=== PATIENT | female | born 1955 | race Caucasian/White ===

== ENCOUNTER 2022-03-20 00:45 | Emergency (ER) | payer MEDICARE, SELFPAY ==
--- NOTE | ~2022-03-20 | CT_ITS ---
EXAMINATION: CT cervical spine wo con DATE: 03/20/2022 04:09 INDICATION: Neck pain post fall with head injury TECHNIQUE: Computed tomography (CT) of the cervical spine was performed without intravenous contrast. Automated exposure control and iterative reconstruction technique were employed. The dose-length pro duct was 310.65 mGy-cm. COMPARISON: None FINDINGS: Slight reversal of the normal cervical lordosis. No spondylolisthesis or facet subluxation. Vertebral body heights are normal. No fracture. Moderate disc height loss at C4-C5 through T1-T2 with mild dis c height loss at C2-C3, C3-C4 and T2-T3. Posterior disc osteophyte complexes and moderate to severe u ncovertebral osteoarthritis at C4-C5 through C6-C7 result in mild central canal stenosis and minimal to mild bilateral neural foraminal stenosis at these levels. There is also mild to moderate multileve l cervical facet osteoarthritis. There is asymmetric lymphadenopathy at the right posterior cervical triangle, the largest lymph node measuring 11 mm in maximal short axis diameter. Cervical soft tissue s are otherwise unremarkable. Moderate emphysema at the apices of lungs. IMPRESSION: 1. Moderate cervical spondylosis. No acute osseous abnormality. 2. Nonspecific mild lymphadenopathy at the right posterior cervical triangle most likely reactive alt jose c differential would include less likely lymphoma or metastatic disease. Could consider ultrasoun d-guided core needle biopsy. Reviewed, dictated and finalized at location A. IMPRESSION: 1. Moderate cervical spondylosis. No acute osseous abnormality. 2. Nonspecific mild lymphadenopathy at the right posterior cervical triangle mo st likely reactive although differential would include less likely lymphoma or metastatic disease. Could consider ultrasound-guided core needle biopsy.
--- NOTE | ~2022-03-20 | CT_ITS ---
EXAMINATION: CT brain wo con DATE: 03/20/2022 04:09 INDICATION: Fall with head injury and dizziness TECHNIQUE: Computed tomography (CT) of the head was performed without intravenous contrast. Sagittal and coronal reconstructions were performed. The mA was adjusted according to patient size. Iterative reconstruction technique was employed. The dose-length product was 605.33 mGy-cm. COMPARISON: None FINDINGS: No fracture. No acute intracranial hemorrhage, acute infarction or abnormal extra axial fluid collect ion. Symmetric prominence of the sulci consistent with mild age-appropriate diffuse cerebral volume l oss. Ventricles are normal and symmetric. No mass/mass effect. Small right mastoid effusion. The orbi ts and paranasal sinuses are normal. IMPRESSION: 1. Mild age-appropriate diffuse volume loss. No fracture or acute intracranial process. 2. Small right mastoid effusion. Reviewed, dictated and finalized at location A.
[2022-03-20 00:47] VITALS: BP 135/76; PULSE 72; RESP 18; TEMP 36.8; O2SAT 99
[2022-03-20 04:24] VITALS: BP 103/63; PULSE 65; RESP 16; O2SAT 96
--- NOTE | 2022-03-24 11:02 | ED.FALL ---
HPI - Fall General Chief Complaint: Fall Stated Complaint: dizzy History of Present Illness HPI Narrative: Patient is a 66 year old female with a history of recurrent dizziness here for evaluation of a fall earlier this evening. Patient states she was feeling dizzy this evening which led her to fall and strike her head against the wall on the way down. She denies loss of consciousness, and she was able to get herself off of the ground after falling. She has been ambulatory since the incident. Denies headaches, visual changes, pain in joints, confusion, lacerations or abrasions. Patient was admitted to [facility] for several weeks for evaluation of her dizziness. She has had numerous MRIs and images of her brain without clear etiology of her dizziness. She states tonight was her usual dizzy episode and denies any associated symptoms. She is currently asympomatic and is no longer dizzy. Review of Systems Review of Systems: CONSTITUTIONAL: Denies fever, chills, or sweats. EYES: Denies visual changes, redness, or discharge. ENT: Denies rhinorrhea, congestion, sore throat, or otalgia. CARDIOVASCULAR: Denies chest pain, palpitations, or edema. RESPIRATORY: Denies cough or dyspnea. GASTROINTESTINAL: Denies abdominal pain, nausea, vomiting, or diarrhea. GENITOURINARY: Denies dysuria or hematuria. SKIN: Denies rash or itching. MUSCULOSKELETAL: Denies back pain, joint pain, or myalgia. NEUROLOGIC: Denies headache, numbness, or weakness. PSYCHIATRIC: Denies anxiety or depression. Exam Narrative: APPEARANCE: Well appearing, no pain in distress, well-nourished. Head: Normocephalic and atraumatic. EYES: PERRLA/EOMI, conjunctivae clear NOSE: No nasal drainage EARS: External ear normal in appearance THROAT: Oropharynx is clear. Mucous membranes are moist. NECK: Supple. No adenopathy, no masses. RESPIRATORY: Airway patent, respirations nonlabored. Clear to auscultation bilaterally, no rales, rhonchi, wheezing. CARDIOVASCULAR: Regular rate and rhythm without murmurs, rubs, or gallops. ABDOMINAL: Normoactive bowel sounds. Soft, nontender, nondistended. No rebound tenderness or guarding. MUSCULOSKELETAL: Extremities are warm and well-perfused. Moves all extremities well. No edema. NEURO: Cranial nerves II-XII intact. Normal speech. No focal neurologic deficits. SKIN: Skin is warm and dry. No rashes. PSYCHIATRIC: Normal affect/mood. Course Vital Signs Vital signs: Vital Signs Temperature 36.8 C 03/20/22 00:47 Pulse Rate 72 03/20/22 00:47 Respiratory Rate 18 03/20/22 00:47 Blood Pressure 135/76 03/20/22 00:47 Pulse Oximetry 99 03/20/22 00:47 Oxygen Delivery Room Air 03/20/22 00:47 Temperature 36.8 C 03/20/22 00:47 Pulse Rate 65 03/20/22 04:24 Respiratory Rate 16 03/20/22 04:24 Blood Pressure 103/63 03/20/22 04:24 Pulse Oximetry 96 03/20/22 04:24 Oxygen Delivery Room Air 03/20/22 00:47 MDM - Fall MDM Narrative Medical decision making narrative: 66 year old female here for evaluation of a fall with head injury earlier today. Vital signs normal, she is currently asymptomatic without evidence of significant head trauma. Stat radiology CT brain and C spine without acute findings; patient was discharged home at time of normal CT scan to follow up with her primary care provider and providers at [facility] who currently manage her dizziness. Discussed return precautions with patient and she voiced understanding. Of note, official read of C spine the following day did note a lymph node in patient's posterior chain that is possibly reactive, but may need biopsy to rule out malignancy. Attempted to call patient x3, but phone number in chart has full voicemail box. Discharge Plan Discharge Patient Disposition: Home, Self-Care Condition: Stable Instructions: Antibiotic Form Follow-up/Referrals: PHYSICIAN NOT ON STAFF,NONSTAFF [Primary Care Provider] -
== END 2022-03-20 04:08 | disposition home or self-care (01) ==
LOC: ANHED 00:58
DX: S09.90XA Unspecified injury of head, initial encounter (principal); W22.09XA Striking against other stationary object, initial encounter
CPT/HCPCS: 70450; 72125; 99284

== ENCOUNTER 2023-06-17 19:38 | Inpatient (IN) | payer MEDICARE, SELFPAY ==
[2023-06-17] VITALS (8 sets, daily range): BP systolic 81–131; BP diastolic 57–71; PULSE 88–97; RESP 18–23; TEMP 37.2; O2SAT 91–95
--- NOTE | ~2023-06-17 | XR_ITS ---
EXAMINATION: XR chest 2V DATE: 06/21/2023 10:24 INDICATION: Right lower lobe pneumonia TECHNIQUE: PA and lateral views of the chest are obtained. COMPARISON: 06/18/2023 FINDINGS: There are persistent airspace opacities of the right lower lobe without significant change. No pleural effusion or pneumothorax. The cardiomediastinal silhouette is normal. There is moderate t horacic spondylosis. IMPRESSION: 1. Right lower lobe pneumonia without significant change. Reviewed, dictated and finalized at location B.
--- NOTE | ~2023-06-17 | CT_ITS ---
Clinical Indication: Pulmonary embolus CT Scan of the Chest with Contrast: Technique: Contiguous sections were acquired throughout the chest after intravenous administration of 100 cc of Omnipaque 350. Dose reduction technique was used on this scan by utilizing automated expos ure control and iterative reconstruction technique. The dose-length product (DLP) was 267.65 mGy-cm. Findings: There is right hilar and subcarinal lymphadenopathy. There is no filling defect in the pulmonary tristian rial tree to suggest pulmonary embolus. There is no evidence of aortic dissection or aneurysm. There is no evidence of pleural or pericardial effusion. There is extensive right lower lobe consolidation, consistent with pneumonia. There is moderate to ad vanced emphysema, especially the upper lobes. Images through the upper abdomen reveal no abnormalities. Impression: Extensive right lower lobe pneumonia. Right hilar and subcarinal lymphadenopathy, presumably reactive. Moderate to advanced emphysema, especially in the upper lobes. Reviewed, dictated and finalized at [facility]. Impression: Extensive right lower lobe pneumonia. Right hilar and subcarinal lymphadenopathy, presumably reactive. Moderate to advanced emphysema, especially in the upper lobes.
--- NOTE | 2023-06-17 23:21 | ECG_ITS ---
Measurements Intervals Leonard Rate: 89 P: 5 [place]: 108 QRS: 62 QRSD: 92 T: 34 QT: 358 QTc: 436 Interpretive Statements SINUS RHYTHM WITH SHORT [place] INTERVAL NONSPECIFIC ST & T-WAVE ABNORMALITY- ANTEROLAT/INF LEADS BORDERLINE ECG NO PREVIOUS ECG AVAILABLE FOR COMPARISON Electronically Signed On 06-18-2023 6:31:34 CDT by Aditya Monahan D.O.
[2023-06-18] VITALS (32 sets, daily range): BP systolic 74–128; BP diastolic 49–84; PULSE 74–94; RESP 16–29; TEMP 36.9–37.2; O2SAT 90–99; BMI 24.9
--- NOTE | 2023-06-18 00:15 | ED.GENADULT ---
HPI - General Adult General Chief complaint: Syncope Stated complaint: syncopal episode Time Seen by Provider: 06/17/23 23:45 History of Present Illness HPI narrative: Patient is a 68-year-old female who presents the emergency department with chief complaint of syncope. Patient reports that she had COVID a couple weeks ago reports that she had a pain in the right side of her chest patient reports that she feels fine now but did feel lightheaded with standing Related Data Allergies Allergy/AdvReac Type Severity Reaction Status Date / Time No Known Allergies Allergy Verified 06/18/23 04:06 Review of Systems Review of Systems: A 10 system review of systems was completed on the patient and is negative except for what is stated in the HPI. Nursing and ancillary documentation was reviewed. Exam Narrative: GENERAL: Well-appearing, well-nourished, and in no acute distress. HEAD: Normocephalic, atraumatic. EYES: PERRLA and EOMI. ENT: Nares clear, no rhinorrhea or epistaxis. Mucous membranes moist. NECK: Supple. CHEST: Clear to auscultation. No respiratory distress. HEART: Regular rate and rhythm. No murmur heard. Normal peripheral pulses. ABDOMEN: Soft, nontender, nondistended, normal active bowel sounds. EXTREMITIES: Normal range of motion. No edema. SKIN: Warm, dry, no rash. NEURO: No focal deficits. Alert and oriented x3. PSYCH: Normal mood and affect. Course Vital Signs Vital signs: Vital Signs Temperature 37.2 C 06/17/23 20:56 Pulse Rate 93 06/17/23 20:56 Respiratory Rate 18 06/17/23 20:56 Blood Pressure 108/68 06/17/23 20:56 Pulse Oximetry 92 06/17/23 20:56 Oxygen Delivery Room Air 06/17/23 20:56 Temperature 37.2 C 06/17/23 20:56 Pulse Rate 74 06/18/23 03:46 Respiratory Rate 25 H 06/18/23 03:46 Blood Pressure 74/59 L 06/18/23 03:46 Pulse Oximetry 94 06/18/23 03:46 Oxygen Delivery Nasal Cannula 06/18/23 00:15 Oxygen Flow Rate 2 06/18/23 00:15 Medical Decision Making MDM Narrative Medical decision making narrative: Differential diagnosis includes pneumonia, CHF, pulmonary embolism, electrolyte abnormality CTA chest showed no evidence of PE but did show evidence of a right lower lobe pneumonia White blood cell count was elevated 25,000 Patient was started on Rocephin and Zithromax given the patient is requiring supplemental oxygen the patient will be admitted to the hospital. Vital Signs Vital Signs: Vital Signs Temperature 37.2 C 06/17/23 20:56 Pulse Rate 93 06/17/23 20:56 Respiratory Rate 18 06/17/23 20:56 Blood Pressure 108/68 06/17/23 20:56 Pulse Oximetry 92 06/17/23 20:56 Oxygen Delivery Room Air 06/17/23 20:56 Temperature 37.2 C 06/17/23 20:56 Pulse Rate 74 06/18/23 03:46 Respiratory Rate 25 H 06/18/23 03:46 Blood Pressure 74/59 L 06/18/23 03:46 Pulse Oximetry 94 06/18/23 03:46 Oxygen Delivery Nasal Cannula 06/18/23 00:15 Oxygen Flow Rate 2 06/18/23 00:15 Lab Data 06/18/23 00:11 06/18/23 00:11 Labs: Lab Results 06/18/23 06/18/23 06/18/23 Range/Units 00:11 00:11 00:11 WBC 25.6 H (4.5-10.0) K/mm3 RBC 5.31 (4.2-5.4) M/mm3 Hgb 13.4 (12.0-15.0) g/dL Hct 41.4 (37.0-47.0) % MCV 78.0 L (80-100) fl MCH 25.2 L (26-34) pg MCHC 32.4 (32-36) g/dl RDW 13.8 (11.5-14.5) % Plt Count 224 (150-375) k/mm3 MPV 10.4 (7.4-10.4) fl Immature Gran % (Auto) 1.2 H (0-0.5) % Neut % (Auto) 83.2 H (45.5-73.1) % Lymph % (Auto) 8.7 L (18.3-44.2) % [place] % (Auto) 6.6 (2.6-8.5) % Eos % (Auto) 0.0 (0-4.4) % Baso % (Auto) 0.3 (0.2-1.2) % Lymph # (Auto) 2.22 (0.9-3.2) K/mm3 [place] # (Auto) 1.7 H (0.1-0.6) K/mm3 Eos # (Auto) 0.0 (0-0.3) K/mm3 Baso # (Auto) 0.1 (0.0-0.1) K/mm3 Abs Immat Gran (auto) 0.31 H (0.00-0.031) K/mm3 Absolute Neuts (auto) 21.3 H (1.3-6.7) K/mm3 Abs
[2023-06-18 00:18] LABS: Basophils Absolute Auto 0.1 K/mm3 (0.0-0.1); Basophils Percent Auto 0.3 % (0.2-1.2); Hematocrit 41.4 % (37.0-47.0); Hemoglobin 13.4 g/dL (12.0-15.0); Immature Granulocyte Absolute 0.31 K/mm3 (0.00-0.031); Immature Granulocyte Percent A 1.2 % (0-0.5); Lymphocytes Absolute Auto 2.22 K/mm3 (0.9-3.2); Lymphocytes Percent Auto 8.7 % (18.3-44.2); Mean Corpuscular HGB Conc 32.4 g/dl (32-36); Mean Corpuscular Hemoglobin 25.2 pg (26-34); Mean Platelet Volume 10.4 fl (7.4-10.4); Monocytes Absolute Auto 1.7 K/mm3 (0.1-0.6); Monocytes Percent Auto 6.6 % (2.6-8.5); Neutrophils Absolute Auto 21.3 K/mm3 (1.3-6.7); Neutrophils Percent Auto 83.2 % (45.5-73.1); Platelet Count Result 224 k/mm3 (150-375); Red Blood Count 5.31 M/mm3 (4.2-5.4); Red Cell Distribution Width 13.8 % (11.5-14.5); White Blood Count 25.6 K/mm3 (4.5-10.0)
[2023-06-18 00:29] LABS: Lactic Acid Reflex 1.5 mmol/L (0.7-2.0)
[2023-06-18 00:32] LABS: INR 1.2; Prothrombin Time 16.1 Seconds (11.1-14.7)
[2023-06-18 00:33] LABS: Partial Thromboplastin Time 35.3 SECONDS (22.3-36.8)
[2023-06-18 00:35] LABS: Alanine Aminotransferase 19 U/L (6-35); Alkaline Phosphatase 118 U/L (38-126); Aspartate Amino Transferase 24 U/L (14-36); Bilirubin,Total 1.5 mg/dL (0.2-1.3); Blood Urea Nitrogen 14 mg/dL (7-17); Calcium 8.6 mg/dL (8.4-10.2); Carbon Dioxide 20 mmol/L (22-30); Estimated CRCL calculation 66 ml/min; Estimated Glomerular Filt Rate > 60; Glucose 105 mg/dL (65-110)
[2023-06-18 00:45] LABS: Anion Gap 12 mmol/L (8-16); Chloride 99 mmol/L (98-107); Magnesium 1.7 mg/dL (1.6-2.3); Potassium 4.2 mmol/L (3.4-5.0); Sodium 131 mmol/L (137-145)
[2023-06-18 02:58] LABS: Influenza A QL RT-PCR Negative (Negative); Influenza B QL RT-PCR Negative (Negative); SARS-CoV-2 RNA PCR Negative (Negative)
[2023-06-18 02:59] LABS: NT Pro B Type Natriuretic Pept 1300 pg/mL (19.9-100); Troponin I < 0.012 ng/mL (0.000-0.034)
[2023-06-18 03:51] LABS: Appearance Urine Clear (Clear); Bacteria Urine None Seen /hpf; Bilirubin Urine Negative (Negative); Blood Urine Negative (Negative); Color Urine Yellow (Yellow); Glucose Urine UA Negative (Negative); Ketones Urine Negative (Negative); Leukocyte Esterase Ur Negative LEU/UL (Negative); Nitrate Urine Negative (Negative); Non Pathogenic Casts 0-2; Protein Urine Negative (Negative); Specific Grav Ur 1.031 (1.001-1.035); Squamous Epithelial Cell Urine Occasional /hpf (Few); WBC Urine 0-5 /hpf
[2023-06-18 03:52] LABS: Add Urine Microscopic? YES
[2023-06-18] MEDS: SODIUM CHLORIDE 0.9% IV 1,000 ML 999 ML IV CONT (04:08)
[2023-06-18] MEDS: AZITHROMYCIN 500 MG/NS 250 ML 500 MG/250 ML BAG 250 MG IVPB (04:19)
[2023-06-18 04:43] LABS: Troponin I < 0.012 ng/mL (0.000-0.034)
[2023-06-18] MEDS: MORPHINE SULFATE (*CRX) 2 MG/ML INJ IV PUSH (05:06)
[2023-06-18] MEDS: ALBUTEROL SULFATE NEB 2.5 MG/3 ML INH INHALATION ×3 (09:27→19:58)
[2023-06-18] MEDS: IPRATROPIUM BR 0.02% INH SOLN 0.5 MG/2.5 ML VIAL INHALATION ×3 (09:27→19:58)
--- NOTE | 2023-06-18 11:34 | PM.IMHP ---
H&P: HPI History of Present Illness Date/Time: 06/18/23 11:34 Chief Complaint: Syncope, right-sided chest pain Narrative: This is a 68-year-old female patient who is admitted to the hospital due to right lower lobe pneumonia with hypoxia in the setting of near syncope and right-sided chest pain. Patient reports recovering from COVID a couple of weeks ago. Patient reports that she was unable to ambulate due to generalized weakness and that she had dyspnea on exertion. Patient reports that she passed out and vomited x1. Patient reports past medical history of anxiety hypertension and prior admission x2 for pneumonia last time was about 15 years ago at [facility]. At that time patient reports that they believed she may have lung cancer due to the severity of pneumonia but when it was biopsied it was infectious inflammation only. Patient denies any recent healthcare exposure last time she was in hospital was well over a year ago at [facility] for neurosarcoidosis. In the emergency department white blood cell count was noted to be 25.6 and patient was requiring oxygen which she usually does not wear. Additional significant findings include hypotension at one point (74/59) that responded to IV fluids and hyponatremia with a sodium of 131. CTA of the chest was negative for PE but did show complex extensive right lower lobe pneumonia. Patient was given IV Rocephin and Zithromax in the emergency department prior to admission. COVID flu swab were negative. Lactic acid was normal. Review of Systems Review of Systems: All systems reviewed & are unremarkable except as noted in HPI and below PMFSH Past Medical History Medical History Anxiety HTN (hypertension) Neurosarcoidosis Social History Social History Smoking packs per day: 0.5 Smoking cigarettes per day: 10.0 Smoking status: Current every day smoker Tobacco type: cigarettes Alcohol intake: never Substance use: never Lack of Transportation: No Lack of Food: Never True Current Housing: I Do Not Have Housing Concerned About Future Housing: No Difficulty Paying Gas/Electric Bills: No Difficulty Paying for Meds: No Currently Unemployed: No Education: High School Diploma/GED Difficulty w/ Childcare or Family Care: No Spiritual care concerns: No Meds Home Medications and Allergies Home Medications Medication Instructions Recorded Confirmed Type alprazolam 0.5 mg tablet 0.5 mg PO HS 06/18/23 06/18/23 History amlodipine 5 mg tablet 5 mg PO DAILY 06/18/23 06/18/23 History bupropion HCl 150 mg tablet,12 hr 150 mg PO BID 06/18/23 06/18/23 History sustained-release hydrochlorothiazide 12.5 mg tablet 12.5 mg PO DAILY 06/18/23 06/18/23 History lisinopril 40 mg tablet 40 mg PO QHS 06/18/23 06/18/23 History metoprolol succinate 100 mg 100 mg PO DAILY 06/18/23 06/18/23 History tablet,extended release 24 hr venlafaxine 150 mg 150 mg PO DAILY 06/18/23 06/18/23 History capsule,extended release 24 hr Allergies Allergy/AdvReac Type Severity Reaction Status Date / Time No Known Allergies Allergy Verified 06/18/23 04:06 Vital Signs Vital Signs - 24 hr 06/17/23 20:56 06/17/23 21:01 06/17/23 23:10 Temperature 37.2 C Pulse Rate 93 91 Respiratory Rate 18 Blood Pressure 108/68 102/57 L Pulse Oximetry 92 93 91 Oxygen Delivery Room Air Nasal Cannula Oxygen Flow Rate 2 06/17/23 23:21 06/17/23 23:35 06/17/23 23:35 Temperature Pulse Rate 89 90 88 Respiratory Rate 21 H Blood Pressure 122/70 131/71 Pulse Oximetry 95 Oxygen Delivery Nasal Cannula Oxygen Flow Rate 2 06/17/23 23:35 06/17/23 23:37 06/17/23 23:22 Temperature Pulse Rate 92 97 88 Respiratory Rate 23 H Blood Pressure 102/70 81/68 L 122/70 Pulse Oximetry 94 Oxygen Delivery Oxygen Flow Rate 06/17/23 23:32
--- NOTE | 2023-06-18 12:00 | ADMGEN ---
This patient, Pauly Tai, was admitted to [facility] Surg Room 306-01. Patient/family oriented to hospital policies and general routines including ID bracelet, bed and alarms, visiting hours, pain management, procedures, bathroom and other care routines, personal items, smoking policy, room service/diet, and visiting hours. Information on how to activate the Rapid Response Team has been discussed. Patient/Family are encouraged to report perceived risks to care and to ask questions if they do not understand what they are told or what they should do.
[2023-06-18] MEDS: CEFEPIME 2 GM/NS 50 ML 2 GM/50 ML BAG IVPB ×2 (13:13→21:15)
[2023-06-18 14:15] LABS: Estimated CRCL calculation 57 ml/min; Estimated Glomerular Filt Rate > 60
[2023-06-18] MEDS: ALPRAZolam (*CRX) 0.5 MG TABLET PO (20:47)
[2023-06-18] MEDS: buPROPion HCL SR (12 HR) 150 MG TAB PO (20:47)
[2023-06-18] MEDS: ENOXAPARIN 40 MG/0.4 ML SYRINGE SUB-Q (20:47)
[2023-06-18] MEDS: AZITHROMYCIN 250 MG TABLET 500 MG PO (20:47)
[2023-06-19] VITALS (15 sets, daily range): BP systolic 106–126; BP diastolic 60–73; PULSE 72–98; RESP 16–20; TEMP 35.5–36.1; O2SAT 91–96
[2023-06-19] MEDS: ALBUTEROL SULFATE NEB 2.5 MG/3 ML INH INHALATION ×4 (02:22→19:41)
[2023-06-19] MEDS: IPRATROPIUM BR 0.02% INH SOLN 0.5 MG/2.5 ML VIAL INHALATION ×4 (02:22→19:42)
[2023-06-19] MEDS: CEFEPIME 2 GM/NS 50 ML 2 GM/50 ML BAG IVPB ×3 (05:33→21:26)
[2023-06-19 07:10] LABS: Basophils Percent Auto 0.2 % (0.2-1.2); Eosinophils Absolute Auto 0.2 K/mm3 (0-0.3); Eosinophils Percent Auto 1.7 % (0-4.4); Hematocrit 38.4 % (37.0-47.0); Hemoglobin 11.8 g/dL (12.0-15.0); Immature Granulocyte Absolute 0.06 K/mm3 (0.00-0.031); Immature Granulocyte Percent A 0.5 % (0-0.5); Lymphocytes Absolute Auto 1.78 K/mm3 (0.9-3.2); Lymphocytes Percent Auto 14.6 % (18.3-44.2); Mean Corpuscular HGB Conc 30.7 g/dl (32-36); Mean Corpuscular Hemoglobin 24.7 pg (26-34); Mean Corpuscular Volume 80.5 fl (80-100); Mean Platelet Volume 10.9 fl (7.4-10.4); Monocytes Percent Auto 8.1 % (2.6-8.5); Neutrophils Absolute Auto 9.1 K/mm3 (1.3-6.7); Neutrophils Percent Auto 74.9 % (45.5-73.1); Platelet Count Result 194 k/mm3 (150-375); Red Blood Count 4.77 M/mm3 (4.2-5.4); Red Cell Distribution Width 14.1 % (11.5-14.5); White Blood Count 12.2 K/mm3 (4.5-10.0)
[2023-06-19 07:30] LABS: Alanine Aminotransferase 13 U/L (6-35); Albumin Level 3.3 g/dL (3.5-5.1); Alkaline Phosphatase 134 U/L (38-126); Anion Gap 9 mmol/L (8-16); Aspartate Amino Transferase 18 U/L (14-36); Bilirubin,Total 0.7 mg/dL (0.2-1.3); Blood Urea Nitrogen 13 mg/dL (7-17); Calcium 8.6 mg/dL (8.4-10.2); Carbon Dioxide 24 mmol/L (22-30); Chloride 103 mmol/L (98-107); Estimated CRCL calculation 57 ml/min; Estimated Glomerular Filt Rate > 60; Glucose 107 mg/dL (65-110); Potassium 3.4 mmol/L (3.4-5.0); Sodium 136 mmol/L (137-145)
[2023-06-19] MEDS: VENLAFAXINE HCL XR 75 MG CAP.ER.24H 150 MG PO (08:04)
[2023-06-19] MEDS: buPROPion HCL SR (12 HR) 150 MG TAB PO ×2 (08:04→21:26)
[2023-06-19] MEDS: VANCOMYCIN 1,250 MG/NS 250 ML 1,250 MG/250 ML BAG 166.67 MG IVPB (08:05)
--- NOTE | 2023-06-19 09:01 | PM.IMPN ---
Progress Note: A&P Assessment and Plan (1) Sepsis: Code(s): A41.9 - Sepsis, unspecified organism Status: Acute Assessment and Plan: improving, vital signs stable, white count improving (2) Hyponatremia: Code(s): E87.1 - Hypo-osmolality and hyponatremia Status: Acute Assessment and Plan: improving sodium currently 136 (3) Pneumonia: Code(s): J18.9 - Pneumonia, unspecified organism Status: Acute Assessment and Plan: patient is on vancomycin cefepime improving white blood cell count improving vital signs able to start weaning oxygen. (4) Anxiety: Code(s): F41.9 - Anxiety disorder, unspecified Status: Acute Assessment and Plan: Stable continue home medications (5) HTN (hypertension): Code(s): I10 - Essential (primary) hypertension Status: Acute Assessment and Plan: stable. Blood pressure reviewed 06/19 (6) Hypoxia: Code(s): R09.02 - Hypoxemia Status: Acute Assessment and Plan: in the process of weaning oxygen currently requiring 1 liter/minute. Added incentive spirometer use today Time Spent With Patient Time with patient: 25 - 35 minutes Subjective Date/time seen: 06/19/23 09:01 Interval history: Patient reports that she still has some occasional moments of difficulty breathing. She reports that she is coughing but not bringing up much mucus. The cough is constant. Patient denies any chest pain nausea vomiting or voiding problems. Review of Systems Review of Systems: All systems reviewed & are unremarkable except as noted in HPI and below Exam Narrative: GENERAL: Mildly ill-appearing with occasional cough, alert and oriented, in no apparent distress. She is pleasant and conversant in full sentences. Supplemental oxygen in place HEENT: Pupils are equally round and briskly reactive to light. Extraocular muscles are intact. Oral mucous membranes are moist without lesions. NECK: The patient has no noted JVD. No adenopathy is appreciated. CHEST/LUNGS: Lungs are clear on the left and anterior right but nearly absent posterior right. Mild tenderness to the right lower anterior rib cage. No tachypnea or respiratory distress HEART: The patient has a regular rate and rhythm. No murmurs, rubs, or gallops are appreciated. Distal pulses are 2+. No carotid bruits appreciated. ABDOMEN: The patient?s abdomen is soft, nontender, and nondistended. Bowel sounds are positive. No organomegaly is appreciated. No masses are appreciated. There are no peritoneal signs. There is no Blank?s sign. EXTREMITIES: The patient has no peripheral edema. There is no focal long bone tenderness or deformity. SKIN: The patient?s skin is warm and dry, without rashes or lesions. PSYCHIATRIC: The patient has normal mental status and has an appropriate affect. NEUROLOGIC: There are no gross deficits to the cranial nerves. Patient ambulates with steady gait. Objective Data Vital Signs Vital Signs: Vital Signs - 24 hr 06/18/23 09:31 06/18/23 09:22 06/18/23 09:30 Temperature Pulse Rate 84 87 85 Respiratory Rate 20 29 H 26 H Blood Pressure 116/59 L Pulse Oximetry 90 99 Oxygen Delivery Oxygen Flow Rate 06/18/23 09:38 06/18/23 09:46 06/18/23 10:00 Temperature Pulse Rate 84 86 88 Respiratory Rate 20 26 H 20 Blood Pressure 124/65 Pulse Oximetry 92 92 90 Oxygen Delivery Oxygen Flow Rate 06/18/23 11:35 06/18/23 14:17 06/18/23 14:18 Temperature 36.9 C Pulse Rate 90 77 77 Respiratory Rate 16 20 16 Blood Pressure 110/84 Pulse Oximetry 91 98 Oxygen Delivery Nasal Cannula Oxygen Flow Rate 2 06/18/23 14:00 06/18/23 12:00 06/18/23 17:03 Temperature 37.2 C Pulse Rate 84 85 Respiratory Rate 16 Blood Pressure 104/65 Pulse Oximetry 91 92 Oxygen Delivery Nasal Cannula Oxygen Flow Rate 2 06/18/23 16:00 06/18/23 19:59 06/18/23 20:10 Temperature Pulse Rate 80 74
[2023-06-19] MEDS: ENOXAPARIN 40 MG/0.4 ML SYRINGE SUB-Q (21:26)
[2023-06-19] MEDS: AZITHROMYCIN 250 MG TABLET 500 MG PO (21:26)
[2023-06-19] MEDS: ALPRAZolam (*CRX) 0.5 MG TABLET PO (21:26)
[2023-06-20] VITALS (13 sets, daily range): BP systolic 126–143; BP diastolic 70–89; PULSE 86–110; RESP 16–18; TEMP 35.9–36.6; O2SAT 91–96
[2023-06-20 01:52] LABS: Vancomycin Trough 10.2 ug/mL (10.0-20.0)
[2023-06-20] MEDS: VANCOMYCIN 1,250 MG/NS 250 ML 1,250 MG/250 ML BAG 166.67 MG IVPB (02:21)
[2023-06-20] MEDS: ALBUTEROL SULFATE NEB 2.5 MG/3 ML INH INHALATION ×4 (02:34→19:29)
[2023-06-20] MEDS: IPRATROPIUM BR 0.02% INH SOLN 0.5 MG/2.5 ML VIAL INHALATION ×4 (02:34→19:30)
[2023-06-20] MEDS: CEFEPIME 2 GM/NS 50 ML 2 GM/50 ML BAG IVPB ×3 (05:37→21:36)
[2023-06-20 06:35] LABS: Basophils Percent Auto 0.5 % (0.2-1.2); Eosinophils Absolute Auto 0.3 K/mm3 (0-0.3); Eosinophils Percent Auto 3.5 % (0-4.4); Hematocrit 36.3 % (37.0-47.0); Hemoglobin 11.3 g/dL (12.0-15.0); Immature Granulocyte Absolute 0.04 K/mm3 (0.00-0.031); Immature Granulocyte Percent A 0.5 % (0-0.5); Lymphocytes Absolute Auto 1.35 K/mm3 (0.9-3.2); Mean Corpuscular HGB Conc 31.1 g/dl (32-36); Mean Corpuscular Hemoglobin 24.5 pg (26-34); Mean Corpuscular Volume 78.6 fl (80-100); Mean Platelet Volume 10.2 fl (7.4-10.4); Monocytes Absolute Auto 0.7 K/mm3 (0.1-0.6); Monocytes Percent Auto 8.3 % (2.6-8.5); Neutrophils Absolute Auto 5.6 K/mm3 (1.3-6.7); Neutrophils Percent Auto 70.2 % (45.5-73.1); Platelet Count Result 203 k/mm3 (150-375); Red Blood Count 4.62 M/mm3 (4.2-5.4); Red Cell Distribution Width 13.9 % (11.5-14.5); White Blood Count 7.9 K/mm3 (4.5-10.0)
[2023-06-20 06:40] LABS: Alanine Aminotransferase 13 U/L (6-35); Albumin Level 3.2 g/dL (3.5-5.1); Alkaline Phosphatase 112 U/L (38-126); Anion Gap 6 mmol/L (8-16); Aspartate Amino Transferase 17 U/L (14-36); Bilirubin,Total 0.5 mg/dL (0.2-1.3); Blood Urea Nitrogen 9 mg/dL (7-17); Calcium 8.5 mg/dL (8.4-10.2); Carbon Dioxide 24 mmol/L (22-30); Chloride 107 mmol/L (98-107); Estimated CRCL calculation 66 ml/min; Estimated Glomerular Filt Rate > 60; Glucose 141 mg/dL (65-110); Sodium 137 mmol/L (137-145)
[2023-06-20] MEDS: buPROPion HCL SR (12 HR) 150 MG TAB PO ×2 (08:12→20:35)
[2023-06-20] MEDS: VENLAFAXINE HCL XR 75 MG CAP.ER.24H 150 MG PO (08:12)
--- NOTE | 2023-06-20 12:34 | PM.IMPN ---
Progress Note: A&P Assessment and Plan (1) Sepsis: Code(s): A41.9 - Sepsis, unspecified organism Status: Acute Assessment and Plan: improving, vital signs stable, white count improving (2) Hyponatremia: Code(s): E87.1 - Hypo-osmolality and hyponatremia Status: Acute Assessment and Plan: improving sodium currently 137 (3) Pneumonia: Code(s): J18.9 - Pneumonia, unspecified organism Status: Acute Assessment and Plan: MRSA screen of the nares was negative. Vancomycin discontinued. Patient continues on cefepime. occasional nonproductive cough noted. Add Mucinex DM to try to thin secretions continue incentive spirometer (4) Anxiety: Code(s): F41.9 - Anxiety disorder, unspecified Status: Acute Assessment and Plan: Stable continue home medications (5) HTN (hypertension): Code(s): I10 - Essential (primary) hypertension Status: Acute Assessment and Plan: stable. Blood pressure reviewed 06/20 (6) Hypoxia: Code(s): R09.02 - Hypoxemia Status: Acute Assessment and Plan: patient using incentive spirometer, oxygen removed on examination and patient tolerating Room air currently. Plan transition patient to room air will plan to discharge patient when she can remain room air and sputum culture results sputum culture indicative of lower respiratory tract secretions, awaiting final report Time Spent With Patient Time with patient: 25 - 35 minutes Subjective Date/time seen: 06/20/23 12:34 Interval history: patient reports that she is doing well still with occasional shortness of breath and nonproductive cough. No fever chills. No chest pain nausea vomiting bowel or bladder problems. Review of Systems Review of Systems: All systems reviewed & are unremarkable except as noted in HPI and below Exam Narrative: GENERAL: now well-appearing with occasional cough, alert and oriented, in no apparent distress. She is pleasant and conversant in full sentences. Supplemental oxygen discontinued by this provider HEENT: Pupils are equally round and briskly reactive to light. Extraocular muscles are intact. Oral mucous membranes are moist without lesions. NECK: The patient has no noted JVD. No adenopathy is appreciated. CHEST/LUNGS: Lungs are clear on the left and right lower lobe rhonchi present which is improved over near absent lung sounds previous. Mild tenderness to the right lower anterior rib cage. No tachypnea or respiratory distress HEART: The patient has a regular rate and rhythm. No murmurs, rubs, or gallops are appreciated. Distal pulses are 2+. No carotid bruits appreciated. ABDOMEN: The patient?s abdomen is soft, nontender, and nondistended. Bowel sounds are positive. No organomegaly is appreciated. No masses are appreciated. There are no peritoneal signs. There is no Blank?s sign. EXTREMITIES: The patient has no peripheral edema. There is no focal long bone tenderness or deformity. SKIN: The patient?s skin is warm and dry, without rashes or lesions. PSYCHIATRIC: The patient has normal mental status and has an appropriate affect. NEUROLOGIC: There are no gross deficits to the cranial nerves. Patient ambulates with steady gait. Objective Data Vital Signs Vital Signs: Vital Signs - 24 hr 06/19/23 14:18 06/19/23 14:32 06/19/23 14:00 Temperature 36.1 C L Pulse Rate 96 91 92 Respiratory Rate 20 18 16 Blood Pressure 106/60 Pulse Oximetry 94 Oxygen Delivery Oxygen Flow Rate 06/19/23 19:44 06/19/23 19:44 06/19/23 20:00 Temperature Pulse Rate 80 84 Respiratory Rate 18 18 Blood Pressure Pulse Oximetry 96 Oxygen Delivery Nasal Cannula Room Air Oxygen Flow Rate 2 06/19/23 22:00 06/20/23 02:35 06/19/23 20:05 Temperature 35.9 C L Pulse Rate 98 92 91 Respiratory Rate 16 18 18 Blood Pressure 126/73 Pulse Oximetry 93 Oxygen Delivery Oxygen Flow Rate
[2023-06-20] MEDS: polyethylene glycoL 3350 17 GM POWD.PACK PO (13:39)
[2023-06-20] MEDS: guaiFENesin 600 MG/DEXTROMETHORPHAN 30 MG SR TAB 12 HR 1 TAB PO ×2 (13:39→20:36)
[2023-06-20] MEDS: AZITHROMYCIN 250 MG TABLET 500 MG PO (20:34)
[2023-06-20] MEDS: ALPRAZolam (*CRX) 0.5 MG TABLET PO (20:34)
[2023-06-20] MEDS: ENOXAPARIN 40 MG/0.4 ML SYRINGE SUB-Q (20:35)
[2023-06-21] VITALS (16 sets, daily range): BP systolic 129–158; BP diastolic 63–83; PULSE 72–111; RESP 16–18; TEMP 36.2–38.2; O2SAT 77–94
[2023-06-21] MEDS: IPRATROPIUM BR 0.02% INH SOLN 0.5 MG/2.5 ML VIAL INHALATION ×3 (01:09→13:50)
[2023-06-21] MEDS: ALBUTEROL SULFATE NEB 2.5 MG/3 ML INH INHALATION ×3 (01:09→13:50)
[2023-06-21] MEDS: CEFEPIME 2 GM/NS 50 ML 2 GM/50 ML BAG IVPB ×3 (05:20→21:20)
[2023-06-21 07:08] LABS: Basophils Absolute Auto 0.1 K/mm3 (0.0-0.1); Basophils Percent Auto 0.6 % (0.2-1.2); Eosinophils Absolute Auto 0.3 K/mm3 (0-0.3); Eosinophils Percent Auto 4.3 % (0-4.4); Hematocrit 38.8 % (37.0-47.0); Hemoglobin 12.6 g/dL (12.0-15.0); Immature Granulocyte Absolute 0.04 K/mm3 (0.00-0.031); Immature Granulocyte Percent A 0.5 % (0-0.5); Lymphocytes Absolute Auto 1.42 K/mm3 (0.9-3.2); Lymphocytes Percent Auto 17.8 % (18.3-44.2); Mean Corpuscular HGB Conc 32.5 g/dl (32-36); Mean Corpuscular Volume 76.8 fl (80-100); Mean Platelet Volume 10.2 fl (7.4-10.4); Monocytes Absolute Auto 0.8 K/mm3 (0.1-0.6); Monocytes Percent Auto 10.1 % (2.6-8.5); Neutrophils Absolute Auto 5.3 K/mm3 (1.3-6.7); Neutrophils Percent Auto 66.7 % (45.5-73.1); Platelet Count Result 280 k/mm3 (150-375); Red Blood Count 5.05 M/mm3 (4.2-5.4); Red Cell Distribution Width 13.9 % (11.5-14.5)
[2023-06-21 07:18] LABS: Alanine Aminotransferase 15 U/L (6-35); Albumin Level 3.5 g/dL (3.5-5.1); Alkaline Phosphatase 135 U/L (38-126); Anion Gap 7 mmol/L (8-16); Aspartate Amino Transferase 20 U/L (14-36); Bilirubin,Total 0.5 mg/dL (0.2-1.3); Blood Urea Nitrogen 6 mg/dL (7-17); Calcium 8.9 mg/dL (8.4-10.2); Carbon Dioxide 27 mmol/L (22-30); Chloride 104 mmol/L (98-107); Estimated CRCL calculation 66 ml/min; Estimated Glomerular Filt Rate > 60; Glucose 125 mg/dL (65-110); Potassium 3.1 mmol/L (3.4-5.0); Sodium 138 mmol/L (137-145)
[2023-06-21] MEDS: VENLAFAXINE HCL XR 75 MG CAP.ER.24H 150 MG PO (08:43)
[2023-06-21] MEDS: buPROPion HCL SR (12 HR) 150 MG TAB PO ×2 (08:43→21:19)
[2023-06-21] MEDS: POTASSIUM CHLORIDE 20 MEQ ER TABLET 40 MEQ PO (08:43)
[2023-06-21] MEDS: polyethylene glycoL 3350 17 GM POWD.PACK PO (08:44)
[2023-06-21] MEDS: guaiFENesin 600 MG/DEXTROMETHORPHAN 30 MG SR TAB 12 HR 1 TAB PO ×2 (08:44→21:19)
--- NOTE | 2023-06-21 09:56 | PM.IMPN ---
Progress Note: A&P Assessment and Plan (1) Pneumonia: Code(s): J18.9 - Pneumonia, unspecified organism Status: Acute Assessment and Plan: MRSA screen of the nares was negative. Vancomycin discontinued. Patient continues on cefepime. occasional nonproductive cough noted. Add Mucinex DM to try to thin secretions continue incentive spirometer 06/21: oxygen had to be restarted for desaturation. Repeat chest x-ray still shows right lower lobe pneumonia essentially unchanged (2) Hyponatremia: Code(s): E87.1 - Hypo-osmolality and hyponatremia Status: Acute Assessment and Plan: improving sodium currently 138 (3) Anxiety: Code(s): F41.9 - Anxiety disorder, unspecified Status: Acute Assessment and Plan: Stable continue home medications (4) HTN (hypertension): Code(s): I10 - Essential (primary) hypertension Status: Acute Assessment and Plan: stable. Blood pressure reviewed 06/21, restarted antihypertensives that were initially held when patient was septic (5) Hypoxia: Code(s): R09.02 - Hypoxemia Status: Acute Assessment and Plan: patient using incentive spirometer, oxygen removed on examination and patient tolerating Room air currently. 06/21: re-application of oxygen at 1 liter/minute for asymptomatic hypoxia ranging 77 86% on room air (6) Sepsis: Code(s): A41.9 - Sepsis, unspecified organism Status: Acute Assessment and Plan: improving, vital signs stable, white count improving Plan patient failed room air at this time Restarting antihypertensives WBCs have normalized mildly low potassium otherwise CBC and metabolic panel are unremarkable attempt to mobilize patient more and re-attempt room air Yeast noted on sputum culture but feel like this pneumonia is bacterial rather than yeast as she has no significant risk factors for yeast pneumonia Time Spent With Patient Time with patient: Greater than 35 minutes Subjective Date/time seen: 06/21/23 09:56 Interval history: Patient reports that she is doing well still with occasional shortness of breath and mostly nonproductive cough. No fever chills. No chest pain nausea vomiting bowel or bladder problems. nursing staff had to reapply oxygen this morning due to desaturation as low as 77% with peak of 86% on room air. patient was asymptomatic while desaturated Review of Systems Review of Systems: All systems reviewed & are unremarkable except as noted in HPI and below Exam Narrative: GENERAL: now well-appearing with occasional cough, alert and oriented, in no apparent distress. She is pleasant and conversant in full sentences. Supplemental oxygen discontinued by this provider HEENT: Pupils are equally round and briskly reactive to light. Extraocular muscles are intact. Oral mucous membranes are moist without lesions. NECK: The patient has no noted JVD. No adenopathy is appreciated. CHEST/LUNGS: Lungs are clear on the left and right lower lobe rhonchi present which is improved over near absent lung sounds previous. Mild tenderness to the right lower anterior rib cage. No tachypnea or respiratory distress HEART: The patient has a regular rate and rhythm. No murmurs, rubs, or gallops are appreciated. Distal pulses are 2+. No carotid bruits appreciated. ABDOMEN: The patient?s abdomen is soft, nontender, and nondistended. Bowel sounds are positive. No organomegaly is appreciated. No masses are appreciated. There are no peritoneal signs. There is no Blank?s sign. EXTREMITIES: The patient has no peripheral edema. There is no focal long bone tenderness or deformity. SKIN: The patient?s skin is warm and dry, without rashes or lesions. PSYCHIATRIC: The patient has normal mental status and has an appropriate affect. NEUROLOGIC: There are no gross deficits to the cranial nerves. Patient ambulates with steady gait. Objective Data Vital Signs Vital Signs: Vital
[2023-06-21] MEDS: METOPROLOL SUCCINATE EXT REL 100 MG TABCR PO (12:36)
[2023-06-21] MEDS: amLODIPine BESYLATE 5 MG TABLET PO (12:36)
[2023-06-21] MEDS: ALPRAZolam (*CRX) 0.5 MG TABLET PO (21:19)
[2023-06-21] MEDS: lisinopriL 20 MG TABLET 40 MG PO (21:19)
[2023-06-21] MEDS: ENOXAPARIN 40 MG/0.4 ML SYRINGE SUB-Q (21:19)
[2023-06-21] MEDS: AZITHROMYCIN 250 MG TABLET 500 MG PO (21:19)
[2023-06-22] VITALS (15 sets, daily range): BP systolic 147–155; BP diastolic 74–88; PULSE 72–93; RESP 16–18; TEMP 35.8–36.9; O2SAT 86–94
[2023-06-22] MEDS: IPRATROPIUM BR 0.02% INH SOLN 0.5 MG/2.5 ML VIAL INHALATION ×3 (03:14→14:08)
[2023-06-22] MEDS: ALBUTEROL SULFATE NEB 2.5 MG/3 ML INH INHALATION ×3 (03:16→14:08)
[2023-06-22] MEDS: CEFEPIME 2 GM/NS 50 ML 2 GM/50 ML BAG IVPB (06:32)
[2023-06-22 06:37] LABS: Basophils Absolute Auto 0.1 K/mm3 (0.0-0.1); Basophils Percent Auto 0.9 % (0.2-1.2); Eosinophils Absolute Auto 0.4 K/mm3 (0-0.3); Eosinophils Percent Auto 4.8 % (0-4.4); Hematocrit 39.8 % (37.0-47.0); Hemoglobin 12.7 g/dL (12.0-15.0); Immature Granulocyte Absolute 0.07 K/mm3 (0.00-0.031); Immature Granulocyte Percent A 0.9 % (0-0.5); Lymphocytes Absolute Auto 2.08 K/mm3 (0.9-3.2); Lymphocytes Percent Auto 26.1 % (18.3-44.2); Mean Corpuscular HGB Conc 31.9 g/dl (32-36); Mean Corpuscular Volume 78.2 fl (80-100); Mean Platelet Volume 9.8 fl (7.4-10.4); Monocytes Percent Auto 12.4 % (2.6-8.5); Neutrophils Absolute Auto 4.4 K/mm3 (1.3-6.7); Neutrophils Percent Auto 54.9 % (45.5-73.1); Platelet Count Result 302 k/mm3 (150-375); Red Blood Count 5.09 M/mm3 (4.2-5.4); Red Cell Distribution Width 14.1 % (11.5-14.5)
[2023-06-22 06:48] LABS: Alanine Aminotransferase 16 U/L (6-35); Albumin Level 3.5 g/dL (3.5-5.1); Alkaline Phosphatase 123 U/L (38-126); Anion Gap 9 mmol/L (8-16); Aspartate Amino Transferase 32 U/L (14-36); Bilirubin,Total 0.4 mg/dL (0.2-1.3); Blood Urea Nitrogen 7 mg/dL (7-17); Calcium 9.1 mg/dL (8.4-10.2); Carbon Dioxide 27 mmol/L (22-30); Chloride 105 mmol/L (98-107); Estimated CRCL calculation 57 ml/min; Estimated Glomerular Filt Rate > 60; Glucose 98 mg/dL (65-110); Potassium 4.4 mmol/L (3.4-5.0); Sodium 141 mmol/L (137-145)
[2023-06-22] MEDS: METOPROLOL SUCCINATE EXT REL 100 MG TABCR PO (09:19)
[2023-06-22] MEDS: VENLAFAXINE HCL XR 75 MG CAP.ER.24H 150 MG PO (09:19)
[2023-06-22] MEDS: polyethylene glycoL 3350 17 GM POWD.PACK PO (09:20)
[2023-06-22] MEDS: amLODIPine BESYLATE 5 MG TABLET PO (09:20)
[2023-06-22] MEDS: guaiFENesin 600 MG/DEXTROMETHORPHAN 30 MG SR TAB 12 HR 1 TAB PO (09:20)
[2023-06-22] MEDS: buPROPion HCL SR (12 HR) 150 MG TAB PO (09:20)
[2023-06-22] MEDS: AMOXICILLIN/CLAVULANATE K 875-125 MG TAB 1 TABLET PO (14:19)
--- NOTE | 2023-06-22 15:42 | HOMEO2EVAL ---
Evaluation was performed at [facility] Home Oxygen Evaluation RC: Home Oxygen (O2) Evaluation Start: 06/21/23 11:32 Freq: ONCE Status: Active Protocol: RPE Activity Type Activity Date Activity User E-sign Co-sign Detail Recorded Client Recorded Date Recorded By Document 06/22/23 15:00 ERICKSON [email or web address] 06/22/23 15:42 ERICKSON Document 06/22/23 15:03 ERICKSON [email or web address] 06/22/23 15:42 ERICKSON Document 06/22/23 15:04 ERICKSON [email or web address] 06/22/23 15:42 ERICKSON Document 06/22/23 15:05 ERICKSON [email or web address] 06/22/23 15:42 ERICKSON Document 06/22/23 15:15 ERICKSON [id number] 06/22/23 15:42 ERICKSON 06/22/23 06/22/23 06/22/23 15:00 15:03 15:04 Home O2 Evaluation [Oxygen] -Test Phase Resting Exercise Exercise -Oxygen Delivery Room Air Room Air Nasal Cannula -Oxygen Flow Rate (L/min) 1 [Pulse Oximetry] -Pulse Oximetry (90-100 %) 92 86 L 87 L [Pulse Rate] -Pulse Rate (60-100 beats/min) 88 93 [Comments] -Home Oxygen Evaluation Comments [Charges] -Treatment Charges O2 Evaluation - Inpatient 06/22/23 06/22/23 15:05 15:15 Home O2 Evaluation [Oxygen] -Test Phase Exercise Resting -Oxygen Delivery Nasal Cannula Room Air -Oxygen Flow Rate (L/min) 2 [Pulse Oximetry] -Pulse Oximetry (90-100 %) 92 92 [Pulse Rate] -Pulse Rate (60-100 beats/min) [Comments] -Home Oxygen Evaluation Comments PT REQUIRES 2 L WITH ACTIVITY [Charges] -Treatment Charges
--- NOTE | 2023-06-22 16:13 | PM.DS ---
DS: Admitting Diagnosis Discharge Date 06/22/2023 Admitting Diagnosis pneumonia, sepsis, hypoxia, hypertension, anxiety, hyponatremia DS: Discharge Diagnosis Discharge Diagnosis (1) Pneumonia: Code(s): J18.9 - Pneumonia, unspecified organism Status: Acute Assessment and Plan: MRSA screen of the nares was negative. Vancomycin discontinued. Patient continues on cefepime. occasional nonproductive cough noted. Add Mucinex DM to try to thin secretions continue incentive spirometer 06/21: oxygen had to be restarted for desaturation. Repeat chest x-ray still shows right lower lobe pneumonia essentially unchanged (2) Hyponatremia: Code(s): E87.1 - Hypo-osmolality and hyponatremia Status: Acute Assessment and Plan: improving sodium currently 138 (3) Anxiety: Code(s): F41.9 - Anxiety disorder, unspecified Status: Acute Assessment and Plan: Stable continue home medications (4) HTN (hypertension): Code(s): I10 - Essential (primary) hypertension Status: Acute Assessment and Plan: stable. Blood pressure reviewed 06/21, restarted antihypertensives that were initially held when patient was septic (5) Hypoxia: Code(s): R09.02 - Hypoxemia Status: Acute Assessment and Plan: patient using incentive spirometer, oxygen removed on examination and patient tolerating Room air currently. 06/21: re-application of oxygen at 1 liter/minute for asymptomatic hypoxia ranging 77 86% on room air (6) Sepsis: Code(s): A41.9 - Sepsis, unspecified organism Status: Acute Assessment and Plan: improving, vital signs stable, white count improving (7) COPD (chronic obstructive pulmonary disease): Code(s): J44.9 - Chronic obstructive pulmonary disease, unspecified Status: Acute Assessment and Plan: CTA shows extensive upper lung emphysematous changes, patient still smokes and has for many years, unable to wean from oxygen so respiratory therapy completed oxygen eval in found the patient requires 2 liters/minute with activity Plan Patient failed room air at this time Respiratory evaluation, patient requires 2 liters/minute with activity Will discharge when oxygen is available DS: Summary Hospital Course Reason for hospitalization: patient was admitted with sepsis due to right lower lobe pneumonia and hypoxia Hospital Course: Patient was admitted to the hospital with sepsis due to right lower lobe pneumonia. CTA of the chest was negative for pulmonary embolism but did show extensive pneumonia in the right lower lobe. Patient initially required oxygen then was able to temporarily wean to room air before being found to saturate 77% on room air. Initially patient was on vancomycin cefepime and azithromycin. MRSA screening of the nares was negative so vancomycin was discontinued. Patient completed 5 day course of a Zithromax in. Seven pain the escalated to Augmentin 3 times a day dosing which patient has tolerated well. Home oxygen evaluation completed as CT indicates significant emphysematous changes. Patient was not previously diagnosed with COPD. Lung sounds significantly improving with occasional rhonchi in the right lower lobe but much better air movement. Clinically patient appears to be recovering as expected for pneumonia. Patient is still requiring 2 liters/minute with activity. Will discharge with Combivent inhaler, albuterol rescue inhaler, Augmentin and home oxygen. Status at Discharge Cognitive/behavioral status at discharge: Awake alert oriented and pleasant Functional status at discharge: independent ambulation Overall status at discharge: patient is progressing back to baseline Time Spent with Patient Time attestation: Total time spent providing and/or coordinating discharge services: 45 Time spent: Greater than 30 minutes Exam Narrative: GENERAL: Generally well-appearing, alert and oriented
--- NOTE | 2023-06-22 16:47 | PCRCNOTE ---
SET UP HOME O2 AT 2 L WITH ACTIVITY WITH [employer]. PAPERWORK FAXED. CONTACT PEWTER AT [facility] AT IF QUESTIONS. IF FOR SOME REASON HE CANT GET THIS O2 APPROVED, YOU WILL NEED TO SET HER UP WITH DIFFERENT COMPANY. RESPIRATORY CAN CALL [facility] AT [facility] AT AND BRING PT A TANK FOR TRANSPORT HOME.
[2023-06-24 02:00] LABS: Pneumococcal Antigen Urine Not Detected (Not Detected)
[2023-06-24 06:20] LABS: Legionella pneumophila Ag Ur Not Detected (Not Detected)
== END 2023-06-22 18:50 | disposition home or self-care (01) | DRG 871 ==
LOC: ANHED 06-18 04:37 → ANH3MEDSUR 06-18 06:20
PROVIDERS: Admitting Provider Internal Medicine; Emergency Provider Emergency Medicine; PCP Family Medicine; Visit Provider Nurse Practitioner
DX: A41.9 Sepsis, unspecified organism (principal); J18.9 Pneumonia, unspecified organism; E87.1 Hypo-osmolality and hyponatremia; F41.9 Anxiety disorder, unspecified; I10 Essential (primary) hypertension; R09.02 Hypoxemia; F17.210 Nicotine dependence, cigarettes, uncomplicated; Z86.16 Personal history of COVID-19
CPT/HCPCS: 36415; 71046; 71275; 80053; 80202; 81001; 82565; 83605; 83735; 83880; 84484; 85025; 85610; 85730; 87040; 87070; 87081; 87205; 87449; 87502; 87635; 87899; 93005; 94618; 94640; 96365; 99285; A9270; J0456; J0692; J0696; J1650; J2270; J3370; J7030; Q9967

== ENCOUNTER 2024-09-23 17:47 | Emergency (ER) | payer MEDICARE, SELFPAY ==
--- NOTE | ~2024-09-23 | XR_ITS ---
XR chest 2V DATE: 09/23/2024 18:16 INDICATION: Cough TECHNIQUE: 2 views COMPARISON: 06/21/2023 PA and lateral chest FINDINGS: Bilateral hyperinflation. Minimal linear atelectasis or scarring at the lung bases; otherwi se no pulmonary infiltrate or consolidation, pleural effusion or pulmonary vascular congestion or pne umothorax is detected. Normal heart size. No hilar or mediastinal enlargement. Degenerative spurring of the thoracic spine. IMPRESSION: Minimal linear atelectasis or scarring at the lung base; otherwise no active cardiac pulm onary disease Reviewed, dictated and finalized at location [facility]. [facility] IMPRESSION: Minimal linear atelectasis or scarring at the lung base; otherwise no active cardiac pulmonary disease
--- NOTE | 2024-09-23 17:53 | ED.URI ---
HPI - URI/Sore Throat General Chief Complaint: Upper Respiratory Infection Stated Complaint: Cough/Congestion Time Seen by Provider: 09/23/24 18:00 Source: patient and RN notes reviewed Mode of arrival: ambulatory Limitations: no limitations History of Present Illness HPI Narrative: 69-year-old female presents concern for cough, chest congestion, hoarse voice for about 3 days. She denies fever. Reports body aches. She reports history of septic pneumonia. MD elicited complaint: cough Related Data Home Medications ?Medication ?Instructions ?Recorded ?Confirmed ?Last Taken ?Type alprazolam 0.5 mg tablet 0.5 mg PO HS 06/18/23 06/18/23 Unknown History amlodipine 5 mg tablet 5 mg PO DAILY 06/18/23 06/18/23 Unknown History bupropion HCl 150 mg tablet,12 hr 150 mg PO BID 06/18/23 06/18/23 Unknown History sustained-release hydrochlorothiazide 12.5 mg tablet 12.5 mg PO DAILY 06/18/23 06/18/23 Unknown History lisinopril 40 mg tablet 40 mg PO QHS 06/18/23 06/18/23 Unknown History metoprolol succinate 100 mg 100 mg PO DAILY 06/18/23 06/18/23 Unknown History tablet,extended release 24 hr venlafaxine 150 mg 150 mg PO DAILY 06/18/23 06/18/23 Unknown History capsule,extended release 24 hr ezetimibe 10 mg tablet mg 09/23/24 Unknown History Allergies Allergy/AdvReac Type Severity Reaction Status Date / Time No Known Allergies Allergy Verified 09/23/24 17:58 Review of Systems Review of Systems: CONSTITUTIONAL: Reports malaise. Denies chills, sweats, or fever. EYES: Denies visual changes, redness, or discharge. ENT: Reports rhinorrhea, congestion, hoarse voice, sore throat. CARDIOVASCULAR: Denies chest pain, palpitations, or edema. RESPIRATORY: Reports cough. Denies dyspnea. GASTROINTESTINAL: Denies abdominal pain, nausea, vomiting, diarrhea SKIN: Denies rash or itching. MUSCULOSKELETAL: Reports myalgia. NEUROLOGIC: Denies headache. All systems reviewed & are unremarkable except as noted in HPI and below PMFSH Past Medical History Medical History Anxiety HTN (hypertension) Neurosarcoidosis Social History Social History Smoking packs per day: 0.5 Smoking cigarettes per day: 10.0 Smoking status: Current every day smoker Tobacco type: cigarettes Alcohol intake: never Substance use: never Lack of Transportation: No Lack of Food: Never True Current Housing: I Do Not Have Housing Concerned About Future Housing: No Difficulty Paying Gas/Electric Bills: No Difficulty Paying for Meds: No Currently Unemployed: No Education: High School Diploma/GED Difficulty w/ Childcare or Family Care: No Spiritual care concerns: No Comments At time of signature, agree with nursing past medical, surgical, social and family history. There is no relevant family history pertinent to the presenting complaint Exam Narrative: GENERAL: Well-appearing, well-nourished, and in no acute distress. HEAD: Normocephalic EYES: PERRLA, conjunctivae clear ENT: Nares clear. Mucous membranes moist. TM pearly wood with dull light reflex bilaterally; no tragal tenderness. Oropharynx not erythematous without lesions. Tonsils not enlarged and without exudate, no drooling, no trismus, uvula midline. Hoarse voice noted NECK: Supple. No lymphadenopathy CHEST: Clear to auscultation, breath sounds equal. No wheezing, rhonchi, rales, or stridor. No respiratory distress, speaks in full sentences. HEART: Regular rate and rhythm. No murmur heard. SKIN: Warm, dry, no rash. NEURO: Alert and oriented x3. PSYCH: Normal mood and affect Course Course Emergency Course: Patient is aware of diagnosis, understands and agrees to treatment plan. Anticipatory guidance given. Patient agrees to follow-up as directed and is aware of reasons to seek care at the emergency department. Portions of this record may have been created with voice recognition software Level of Care: Express Care Visit Vital Signs Vital signs: Reviewed. MDM - URI/Sore Throat MDM Narrative Medical decision making narrative: Differential diagnosis considered: Dwyer virus, strep pharyngitis, allergic rhinitis, upper respiratory tract infection, sinusitis, rhinosinusitis, nasopharyngitis. viral pharyngitis, otitis media, otitis externa, pneumonia, bronchitis, viral cough syndrome, viral syndrome, and influenza. Exam findings show no acute concerns or changes; patient is non-toxic appearing and is in no distress. Patient is appropriate for outpatient treatment and follow-up. Lab Data Attestation: I reviewed the patient's lab results. Imaging Data My impression: Images reviewed, interpreted by radiologist, agree, see report. Radiologist's impression: XR chest 2V DATE: 09/23/2024 18:16 INDICATION: Cough TECHNIQUE: 2 views COMPARISON: 06/21/2023 PA and lateral chest FINDINGS: Bilateral hyperinflation. Minimal linear atelectasis or scarring at the lung bases; otherwise no pulmonary infiltrate or consolidation, pleural effusion or pulmonary vascular congestion or pneumothorax is detected. Normal heart size. No hilar or mediastinal enlargement. Degenerative spurring of the thoracic spine. IMPRESSION: Minimal linear atelectasis or scarring at the lung base; otherwise no active cardiac pulmonary disease Critical Care Time Critical Care Time Critical Care Time: No Discharge Plan Discharge Clinical Impression: Bronchitis Patient Disposition: Home, Self-Care Condition: Stable Instructions: Acute Bronchitis (ED) Additional Instructions: Your COVID and flu tests are negative Your chest x-ray is normal Viral illness may last between 7-21 days; antibiotics do not cure viral illness and are NOT recommended at this time. Recommend antihistamine such as Benadryl at night time and Zyrtec or Arina during the day Use your inhaler as needed for cough, wheezing, shortness of breath or chest tightness. Also, recommend symptomatic treatment includes: rest, fluids, and increase humidity of the air at home. Recommend Acetaminophen as directed on the bottle to reduce fever, pain, headache. Avoid smoking/second-hand smoke. Please schedule a follow-up visit with your personal physician for further evaluation and treatment within 3-5days. If your symptoms persist, change or worsen significantly before you can contact your personal physician then please, without delay, go to the emergency department for further evaluation. Patient Language: Lao Prescriptions: New methylprednisolone [Medrol (Seth)] 4 mg tablets,dose pack See Rx Instructions .ROUTE .COMPLEX Qty: 21 0RF Rx Instructions: orally per package directions No Action ezetimibe 10 mg tablet bupropion HCl 150 mg tablet sustained-release 12 hr 150 mg PO BID metoprolol succinate 100 mg tablet extended release 24 hr 100 mg PO DAILY venlafaxine 150 mg capsule,extended release 24hr 150 mg PO DAILY amlodipine 5 mg tablet 5 mg PO DAILY alprazolam 0.5 mg tablet 0.5 mg PO HS lisinopril 40 mg tablet 40 mg PO QHS hydrochlorothiazide 12.5 mg tablet 12.5 mg PO DAILY Combivent Respimat 20-100 mcg/actuation mist 1 puff inhalation Q4H Qty: 4 1RF albuterol sulfate 90 mcg/actuation HFA aerosol inhaler 2 puff inhalation QID PRN (Reason: shortness of breath or wheezing) Qty: 8.5 1RF Follow-up/Referrals: PHYSICIAN,[employer] [employer] [Primary Care Provider] - Time of Disposition: 18:30
[2024-09-23 17:57] VITALS: BP 115/76; PULSE 86; RESP 16; TEMP 36.6; O2SAT 97
[2024-09-23 18:26] LABS: EDCOVIDSCREEN Negative (Negative); EDINFLUASCREEN Negative (Negative); EDINFLUBSCREEN Negative (Negative)
== END 2024-09-23 18:38 | disposition home or self-care (01) ==
PROVIDERS: Emergency Provider Nurse Practitioner
DX: J40 Bronchitis, not specified as acute or chronic (principal); I10 Essential (primary) hypertension; F17.210 Nicotine dependence, cigarettes, uncomplicated; Z20.822 Contact with and (suspected) exposure to COVID-19
CPT/HCPCS: 71046; 87426; 87804; 99213; G0463

== ENCOUNTER 2024-09-26 09:49 | Emergency (ER) | payer MEDICARE, SELFPAY ==
[2024-09-26 10:02] VITALS: BP 135/71; PULSE 70; RESP 16; TEMP 37.2; O2SAT 96
--- NOTE | 2024-09-26 10:16 | ED_ITS ---
HPI - URI/Sore Throat General Chief Complaint: Upper Respiratory Infection Stated Complaint: COUGH/CONGESTION Time Seen by Provider: 09/26/24 10:05 Source: patient Mode of arrival: ambulatory Limitations: no limitations History of Present Illness HPI Narrative: Pauly is a 69-year-old female patient presenting to the clinic today with complaints of cough, chest congestion, sinus congestion x5 days. She reports t hat she was seen here 3 days ago and diagnosed with a URI given Medrol Dosepak. She reports that her symptoms are worsening. Cough is increasing. Denies any shortness of breath chest pain. States that she gets bronchitis/pneumonia easily and also has history of sepsis. Had chest x-ray done when she was seen it was negative for any sign pneumonia. MD elicited complaint: cough, nasal congestion and other (Chest congestion) Related Data Home Medications ?Medication ?Instructions ?Recorded ?Confirmed ?Last Taken ?Type alprazolam 0.5 mg tablet 0.5 mg PO HS 06/18/23 06/18/23 Unknown History amlodipine 5 mg tablet 5 mg PO DAILY 06/18/23 06/18/23 Unknown History bupropion HCl 150 mg tablet,12 hr 150 mg PO BID 06/18/23 06/18/23 Unknown History sustained-release hydrochlorothiazide 12.5 mg tablet 12.5 mg PO DAILY 06/18/23 06/18/23 Unknown History lisinopril 40 mg tablet 40 mg PO QHS 06/18/23 06/18/23 Unknown History metoprolol succinate 100 mg 100 mg PO DAILY 06/18/23 06/18/23 Unknown History tablet,extended release 24 hr venlafaxine 150 mg 150 mg PO DAILY 06/18/23 06/18/23 Unknown History capsule,extended release 24 hr ezetimibe 10 mg tablet mg 09/23/24 Unknown History Allergies Allergy/AdvReac Type Severity Reaction Status Date / Time No Known Allergies Allergy Verified 09/23/24 17:58 Review of Systems Review of Systems: Pertinent positives per HPI. Patient denies any fever, chills, rash, headache, visual changes, dizziness, shortness of breath, chest pain, palpitations, nausea, vomiting, diarrhea, constipation, abdominal pain, or any urinary issues. [facility] Past Medical History Medical History Anxiety HTN (hypertension) Neurosarcoidosis Social History Social History Smoking packs per day: 0.5 Smoking cigarettes per day: 10.0 Smoking status: Current every day smoker Tobacco type: cigarettes Alcohol intake: never Substance use: never Lack of Transportation: No Lack of Food: Never True Current Housing: I Do Not Have Housing Concerned About Future Housing: No Difficulty Paying Gas/Electric Bills: No Difficulty Paying for Meds: No Currently Unemployed: No Education: High School Diploma/GED Difficulty w/ Childcare or Family Care: No Spiritual care concerns: No Comments At the time of my signature, I reviewed and agree with the nursing past medical, surgical, social, and family history. There is no relevant family history pertinent to the patient complaint. Exam Narrative: General: Well-developed, well nourished, in no apparent distress Head: Normocephalic, atraumatic Eyes: Pupils equally round and reactive to light bilaterally, EOM intact, sclera and conjunctive clear, no discharge, lids normal Ears: TMs intact and congested, ear canals clear, no drainage, grossly hearing normal. Nose: Nares patent, green nasal discharge, mild inflammation, no sinus tenderness. Mouth: Oral pharynx without lesions or masses, good dentition, MMM. Neck: Supple, trachea midline, no enlargement of anterior or posterior cervical nodes, no thyroid masses or goiter palpable. Cardio: Regular rate and rhythm, s1 and s2 normal, no murmur appreciated. Resp: Diminished in the bases with faint wheeze, no rhonchi, rales, wheezing or rubs Course Course Emergency Course: Portions of this record may have been created with voice recognition software. Level of Care: Express Care Visit Vital Signs Vital signs: Vital Signs Temperature 37.2 C 09/26/24 10:02 Pulse Rate 70 09/26/24 10:02 Respiratory Rate 16 09/26/24 10:02 Blood Pressure 135/71 09/26/24 10:02 Pulse Oximetry 96 09/26/24 10:02 Temperature 37.2 C 09/26/24 10:02 Pulse Rate 70 09/26/24 10:02 Respiratory Rate 16 09/26/24 10:02 Blood Pressure 135/71 09/26/24 10:02 Pulse Oximetry 96 09/26/24 10:02 Vital signs reviewed MDM - URI/Sore Throat MDM Narrative Medical decision making narrative: At the time of visit patient is resting comfortably on the exam table. Patient appears to be nontoxic. Plan: I suspect patient has bronchitis. Patient denies any improvement with using her inhaler and prednisone. Will send in prescription for azithromycin. Supportive measures were discussed with the patient and they voiced understanding discharge instructions and agrees to treatment plan. Return precautions reviewed Differential Diagnosis Differential diagnosis: Likely upper respiratory infection, otitis media, sinusitis, viral infection, bronchitis, influenza, pharyngitis and other (COVID) Discharge Plan Discharge Clinical Impression: Bronchitis Patient Disposition: Home, Self-Care Condition: Stable Instructions: Antibiotic Form, Acute Bronchitis (ED) Additional Instructions: Take prescription medications only as prescribed-azithromycin Continue current medications Increase fluids and stay well hydrated Tylenol/motrin for pain/fever Flonase and OTC antihistamines as directed Vicks vapor rub to open sinuses Sinus rinses for congestion Cepacol spray, cough drops, throat lozenges, warm tea with honey/lemon, gargle salt water to soothe throat BRAT diet for diarrhea Clear liquids x 24 hours then advance as tolerated for nausea/vomiting Go to the ED if you develop a worsening in your condition- high fever not controlled by Tylenol or Motrin, dehydration, weakness, lethargy, shortness of breath, or chest pain. Follow up with your PCP in 3-5 days if symptoms persist. Patient Language: Pashto Prescriptions: New azithromycin 250 mg tablet See Rx Instructions .ROUTE .COMPLEX Qty: 6 0RF Rx Instructions: For 250 mg dose pack: take 500 mg today (day 1), then 250 mg for 4 days (days 2-5) No Action ezetimibe 10 mg tablet methylprednisolone [Medrol (Seth)] 4 mg tablets,dose pack See Rx Instructions .ROUTE .COMPLEX Qty: 21 0RF Rx Instructions: orally per package directions bupropion HCl 150 mg tablet sustained-release 12 hr 150 mg PO BID metoprolol succinate 100 mg tablet extended release 24 hr 100 mg PO DAILY venlafaxine 150 mg capsule,extended release 24hr 150 mg PO DAILY amlodipine 5 mg tablet 5 mg PO DAILY alprazolam 0.5 mg tablet 0.5 mg PO HS lisinopril 40 mg tablet 40 mg PO QHS hydrochlorothiazide 12.5 mg tablet 12.5 mg PO DAILY Combivent Respimat 20-100 mcg/actuation mist 1 puff inhalation Q4H Qty: 4 1RF albuterol sulfate 90 mcg/actuation HFA aerosol inhaler 2 puff inhalation QID PRN (Reason: shortness of breath or wheezing) Qty: 8.5 1RF Follow-up/Referrals: Amor,MD Alfredo [Primary Care Provider] - Time of Disposition: 10:17 Quality NIHSS Nursing Documentation ED NIHSS nursing documentation: reviewed/agree
== END 2024-09-26 10:35 | disposition home or self-care (01) ==
PROVIDERS: Emergency Provider Nurse Practitioner Family; PCP Family Medicine
DX: J40 Bronchitis, not specified as acute or chronic (principal); I10 Essential (primary) hypertension; F41.9 Anxiety disorder, unspecified; F17.210 Nicotine dependence, cigarettes, uncomplicated
CPT/HCPCS: 99213; G0463